=== PATIENT | female | born 1945 | race Hispanic/Latino ===

== ENCOUNTER 2017-12-24 11:03 | Emergency (ER) | payer MEDICARE ==
[~2017-12-24 11:03] MED LIST: ACYC400T PO; AMLO10TA2 PO; ASPI-1181 PO; CALC1TAB2 PO; ENAL20TA PO; FOLI1TAB15 PO; HYDR-4068 PO; INSLAN SQ; METH2.5T6 PO; METR500T4 PO; NYST15CR TP; OMEP20CA10 PO; PRED10TA23 PO; PREG75 PO; RANI300C PO; RANI300T4 PO; SERT50TA12 PO
[2017-12-24] MEDS ORDERED: GENTAMICIN SULFATE 0.3% 5ML DROPS ONE (12:52)
== END 2017-12-24 13:06 | disposition home or self-care (01) ==
LOC: EDH 11:03
DX: H10.33 Unspecified acute conjunctivitis, bilateral (principal); E11.9 Type 2 diabetes mellitus without complications; I10 Essential (primary) hypertension; M81.0 Age-related osteoporosis without current pathological fracture; Z79.4 Long term (current) use of insulin; Z87.891 Personal history of nicotine dependence

== ENCOUNTER 2018-11-07 17:39 | Inpatient (IN) | payer MEDICARE | END 2018-11-17 20:30 | LOC: EDH 17:39 → EDHIP 17:57 → 3AH 21:30 | PROC: 0J970ZZ Drainage of Back Subcutaneous Tissue and Fascia, Open Approach (ICD-10-PCS; principal; 2018-11-09 05:58) | PROC: 0HD6XZZ Extraction of Back Skin, External Approach (ICD-10-PCS; 2018-11-09 05:58) | PROC: 0JD90ZZ Extraction of Buttock Subcutaneous Tissue and Fascia, Open Approach (ICD-10-PCS; 2018-11-09 05:58) | DX: A41.9 Sepsis, unspecified organism (principal); M46.28 Osteomyelitis of vertebra, sacral and sacrococcygeal region; L02.31 Cutaneous abscess of buttock; Z79.52 Long term (current) use of systemic steroids; Z79.4 Long term (current) use of insulin; E11.65 Type 2 diabetes mellitus with hyperglycemia; E11.40 Type 2 diabetes mellitus with diabetic neuropathy, unspecified; E11.22 Type 2 diabetes mellitus with diabetic chronic kidney disease; N18.1 Chronic kidney disease, stage 1; I12.9 Hypertensive chronic kidney disease with stage 1 through stage 4 chronic kidney disease, or unspecified chronic kidney disease; I70.0 Atherosclerosis of aorta; D89.9 Disorder involving the immune mechanism, unspecified; M43.16 Spondylolisthesis, lumbar region ==

== ENCOUNTER → 2018-12-06 | Outpatient (CLI) | payer MEDICARE ==
[~2018-12-06] MED LIST changes: +ALBU8.5H8 IH; -AMLO10TA2 PO; +BUDE10.2 IH; -CALC1TAB2 PO; +DONE5TAB33 PO; -ENAL20TA PO; +LIDOCAINE HCL 2% JELLY 5 ML TP ONE; -METH2.5T6 PO; +METR-172 PO; -METR500T4 PO; -NYST15CR TP; -OMEP20CA10 PO; +PANT40TA PO; -PRED10TA23 PO; +PRED5TAB PO; -PREG75 PO; -RANI300C PO; -RANI300T4 PO; -SERT50TA12 PO; +SIMV5TAB58 PO
[2018-12-06 15:02] VITALS: BP 129/74
== END | disposition home or self-care (01) ==
LOC: WHH 09:00
PROVIDERS: ATTEND Surgery
DX: T81.89XD Other complications of procedures, not elsewhere classified, subsequent encounter (principal); E11.622 Type 2 diabetes mellitus with other skin ulcer; L98.412 Non-pressure chronic ulcer of buttock with fat layer exposed; K21.9 Gastro-esophageal reflux disease without esophagitis; F03.90 Unspecified dementia, unspecified severity, without behavioral disturbance, psychotic disturbance, mood disturbance, and anxiety; M81.0 Age-related osteoporosis without current pathological fracture; J44.9 Chronic obstructive pulmonary disease, unspecified; E11.22 Type 2 diabetes mellitus with diabetic chronic kidney disease; I12.9 Hypertensive chronic kidney disease with stage 1 through stage 4 chronic kidney disease, or unspecified chronic kidney disease; N18.1 Chronic kidney disease, stage 1; F32.9 Major depressive disorder, single episode, unspecified; E78.2 Mixed hyperlipidemia; M06.9 Rheumatoid arthritis, unspecified; E11.40 Type 2 diabetes mellitus with diabetic neuropathy, unspecified; E11.618 Type 2 diabetes mellitus with other diabetic arthropathy; M19.90 Unspecified osteoarthritis, unspecified site; F11.20 Opioid dependence, uncomplicated; Z90.49 Acquired absence of other specified parts of digestive tract; Z87.891 Personal history of nicotine dependence; Z96.642 Presence of left artificial hip joint; Z79.52 Long term (current) use of systemic steroids; Z79.51 Long term (current) use of inhaled steroids; Z79.4 Long term (current) use of insulin; Z79.82 Long term (current) use of aspirin; Z79.899 Other long term (current) drug therapy; Y83.8 Other surgical procedures as the cause of abnormal reaction of the patient, or of later complication, without mention of misadventure at the time of the procedure
CPT/HCPCS: A4450; A6021; G0463

== ENCOUNTER → 2018-12-13 | Outpatient (CLI) | payer MEDICARE ==
[~2018-12-13] MED LIST changes: -LIDOCAINE HCL 2% JELLY 5 ML TP ONE; +LIDOCAINE/PRILOCAINE CREAM 5GM TUBE TP ONE
[2018-12-13 15:15] VITALS: BP 137/57
== END | disposition home or self-care (01) ==
LOC: WHH 10:25
PROVIDERS: ATTEND Surgery
DX: T81.89XD Other complications of procedures, not elsewhere classified, subsequent encounter (principal); E11.622 Type 2 diabetes mellitus with other skin ulcer; L98.412 Non-pressure chronic ulcer of buttock with fat layer exposed; K21.9 Gastro-esophageal reflux disease without esophagitis; F03.90 Unspecified dementia, unspecified severity, without behavioral disturbance, psychotic disturbance, mood disturbance, and anxiety; E11.40 Type 2 diabetes mellitus with diabetic neuropathy, unspecified; E11.618 Type 2 diabetes mellitus with other diabetic arthropathy; E11.22 Type 2 diabetes mellitus with diabetic chronic kidney disease; I12.9 Hypertensive chronic kidney disease with stage 1 through stage 4 chronic kidney disease, or unspecified chronic kidney disease; N18.1 Chronic kidney disease, stage 1; J44.9 Chronic obstructive pulmonary disease, unspecified; M81.0 Age-related osteoporosis without current pathological fracture; M06.9 Rheumatoid arthritis, unspecified; E78.2 Mixed hyperlipidemia; F32.9 Major depressive disorder, single episode, unspecified; F11.20 Opioid dependence, uncomplicated; Z79.4 Long term (current) use of insulin; Z79.82 Long term (current) use of aspirin; Z79.52 Long term (current) use of systemic steroids; Z87.891 Personal history of nicotine dependence; Z79.899 Other long term (current) drug therapy; Z96.642 Presence of left artificial hip joint; Y83.8 Other surgical procedures as the cause of abnormal reaction of the patient, or of later complication, without mention of misadventure at the time of the procedure
CPT/HCPCS: A6021; G0463; J3490

== ENCOUNTER → 2018-12-20 | Outpatient (CLI) | payer MEDICARE ==
[2018-12-20 12:17] VITALS: BP 150/89
== END | disposition home or self-care (01) ==
LOC: WHH 10:10
PROVIDERS: ATTEND Surgery
DX: T81.89XD Other complications of procedures, not elsewhere classified, subsequent encounter (principal); E11.622 Type 2 diabetes mellitus with other skin ulcer; L98.412 Non-pressure chronic ulcer of buttock with fat layer exposed; E11.40 Type 2 diabetes mellitus with diabetic neuropathy, unspecified; E11.618 Type 2 diabetes mellitus with other diabetic arthropathy; E11.22 Type 2 diabetes mellitus with diabetic chronic kidney disease; I12.9 Hypertensive chronic kidney disease with stage 1 through stage 4 chronic kidney disease, or unspecified chronic kidney disease; N18.1 Chronic kidney disease, stage 1; K21.9 Gastro-esophageal reflux disease without esophagitis; J44.9 Chronic obstructive pulmonary disease, unspecified; E78.5 Hyperlipidemia, unspecified; E78.2 Mixed hyperlipidemia; M19.90 Unspecified osteoarthritis, unspecified site; M06.9 Rheumatoid arthritis, unspecified; M81.0 Age-related osteoporosis without current pathological fracture; F03.90 Unspecified dementia, unspecified severity, without behavioral disturbance, psychotic disturbance, mood disturbance, and anxiety; F32.9 Major depressive disorder, single episode, unspecified; Z79.4 Long term (current) use of insulin; Z79.82 Long term (current) use of aspirin; Z79.899 Other long term (current) drug therapy; Z87.891 Personal history of nicotine dependence; Z96.642 Presence of left artificial hip joint; Z79.51 Long term (current) use of inhaled steroids; Y83.8 Other surgical procedures as the cause of abnormal reaction of the patient, or of later complication, without mention of misadventure at the time of the procedure
CPT/HCPCS: 11042; A6021; J3490

== ENCOUNTER → 2018-12-27 | Outpatient (CLI) | payer MEDICARE ==
[2018-12-27 12:11] VITALS: BP 134/84
== END | disposition home or self-care (01) ==
LOC: WHH 09:45
PROVIDERS: ATTEND Surgery
DX: T81.89XD Other complications of procedures, not elsewhere classified, subsequent encounter (principal); E11.622 Type 2 diabetes mellitus with other skin ulcer; L98.412 Non-pressure chronic ulcer of buttock with fat layer exposed; E11.22 Type 2 diabetes mellitus with diabetic chronic kidney disease; I12.9 Hypertensive chronic kidney disease with stage 1 through stage 4 chronic kidney disease, or unspecified chronic kidney disease; N18.1 Chronic kidney disease, stage 1; E11.40 Type 2 diabetes mellitus with diabetic neuropathy, unspecified; E11.618 Type 2 diabetes mellitus with other diabetic arthropathy; E78.5 Hyperlipidemia, unspecified; E78.2 Mixed hyperlipidemia; K21.9 Gastro-esophageal reflux disease without esophagitis; M81.0 Age-related osteoporosis without current pathological fracture; M06.9 Rheumatoid arthritis, unspecified; M19.90 Unspecified osteoarthritis, unspecified site; F03.90 Unspecified dementia, unspecified severity, without behavioral disturbance, psychotic disturbance, mood disturbance, and anxiety; F32.9 Major depressive disorder, single episode, unspecified; Z79.4 Long term (current) use of insulin; Z79.82 Long term (current) use of aspirin; Z79.51 Long term (current) use of inhaled steroids; Z87.891 Personal history of nicotine dependence; Z96.642 Presence of left artificial hip joint; Z79.52 Long term (current) use of systemic steroids; Z79.899 Other long term (current) drug therapy; Y83.8 Other surgical procedures as the cause of abnormal reaction of the patient, or of later complication, without mention of misadventure at the time of the procedure
CPT/HCPCS: 11042; A6021; J3490

== ENCOUNTER → 2019-01-03 | Outpatient (CLI) | payer MEDICARE ==
[2019-01-03 14:10] VITALS: BP 145/115
== END | disposition home or self-care (01) ==
LOC: WHH 10:15
PROVIDERS: ATTEND Surgery
DX: T81.89XD Other complications of procedures, not elsewhere classified, subsequent encounter (principal); E11.40 Type 2 diabetes mellitus with diabetic neuropathy, unspecified; E11.618 Type 2 diabetes mellitus with other diabetic arthropathy; E11.22 Type 2 diabetes mellitus with diabetic chronic kidney disease; I12.9 Hypertensive chronic kidney disease with stage 1 through stage 4 chronic kidney disease, or unspecified chronic kidney disease; N18.1 Chronic kidney disease, stage 1; K21.9 Gastro-esophageal reflux disease without esophagitis; M06.9 Rheumatoid arthritis, unspecified; M81.0 Age-related osteoporosis without current pathological fracture; J44.9 Chronic obstructive pulmonary disease, unspecified; E78.2 Mixed hyperlipidemia; F11.20 Opioid dependence, uncomplicated; F03.90 Unspecified dementia, unspecified severity, without behavioral disturbance, psychotic disturbance, mood disturbance, and anxiety; F32.9 Major depressive disorder, single episode, unspecified; Z79.4 Long term (current) use of insulin; Z79.52 Long term (current) use of systemic steroids; Z79.51 Long term (current) use of inhaled steroids; Z79.82 Long term (current) use of aspirin; Z79.899 Other long term (current) drug therapy; Y83.8 Other surgical procedures as the cause of abnormal reaction of the patient, or of later complication, without mention of misadventure at the time of the procedure
CPT/HCPCS: 11042; A6021; J3490

== ENCOUNTER → 2019-01-17 | Outpatient (CLI) | payer MEDICARE ==
[2019-01-17 13:28] VITALS: BP 134/56
== END | disposition home or self-care (01) ==
LOC: WHH 11:45
PROVIDERS: ATTEND Surgery
DX: T81.89XD Other complications of procedures, not elsewhere classified, subsequent encounter (principal); E11.622 Type 2 diabetes mellitus with other skin ulcer; L98.412 Non-pressure chronic ulcer of buttock with fat layer exposed; E78.5 Hyperlipidemia, unspecified; K21.9 Gastro-esophageal reflux disease without esophagitis; F03.90 Unspecified dementia, unspecified severity, without behavioral disturbance, psychotic disturbance, mood disturbance, and anxiety; B37.9 Candidiasis, unspecified; E11.22 Type 2 diabetes mellitus with diabetic chronic kidney disease; I12.9 Hypertensive chronic kidney disease with stage 1 through stage 4 chronic kidney disease, or unspecified chronic kidney disease; N18.1 Chronic kidney disease, stage 1; E11.618 Type 2 diabetes mellitus with other diabetic arthropathy; J44.9 Chronic obstructive pulmonary disease, unspecified; E78.2 Mixed hyperlipidemia; M19.90 Unspecified osteoarthritis, unspecified site; M06.9 Rheumatoid arthritis, unspecified; F11.20 Opioid dependence, uncomplicated; Z79.4 Long term (current) use of insulin; Z79.82 Long term (current) use of aspirin; Z79.52 Long term (current) use of systemic steroids; Z79.899 Other long term (current) drug therapy; Z96.642 Presence of left artificial hip joint; Y83.8 Other surgical procedures as the cause of abnormal reaction of the patient, or of later complication, without mention of misadventure at the time of the procedure
CPT/HCPCS: A6021; G0463; J3490

== ENCOUNTER → 2019-01-31 | Outpatient (CLI) | payer MEDICARE ==
[2019-01-31 14:46] VITALS: BP 142/62
== END | disposition home or self-care (01) ==
LOC: WHH 10:00
PROVIDERS: ATTEND Surgery
DX: E11.622 Type 2 diabetes mellitus with other skin ulcer (principal); L98.412 Non-pressure chronic ulcer of buttock with fat layer exposed; E11.22 Type 2 diabetes mellitus with diabetic chronic kidney disease; I12.9 Hypertensive chronic kidney disease with stage 1 through stage 4 chronic kidney disease, or unspecified chronic kidney disease; N18.1 Chronic kidney disease, stage 1; E11.610 Type 2 diabetes mellitus with diabetic neuropathic arthropathy; E11.40 Type 2 diabetes mellitus with diabetic neuropathy, unspecified; K21.9 Gastro-esophageal reflux disease without esophagitis; E78.2 Mixed hyperlipidemia; J44.9 Chronic obstructive pulmonary disease, unspecified; M06.9 Rheumatoid arthritis, unspecified; M19.90 Unspecified osteoarthritis, unspecified site; M81.0 Age-related osteoporosis without current pathological fracture; F32.9 Major depressive disorder, single episode, unspecified; F03.90 Unspecified dementia, unspecified severity, without behavioral disturbance, psychotic disturbance, mood disturbance, and anxiety; F11.20 Opioid dependence, uncomplicated; Z79.4 Long term (current) use of insulin; Z79.82 Long term (current) use of aspirin; Z79.52 Long term (current) use of systemic steroids; Z87.891 Personal history of nicotine dependence; Z90.49 Acquired absence of other specified parts of digestive tract; Z96.642 Presence of left artificial hip joint; Z79.899 Other long term (current) drug therapy; Z79.51 Long term (current) use of inhaled steroids
CPT/HCPCS: A6209; G0463; J3490

== ENCOUNTER → 2019-02-07 | Outpatient (CLI) | payer MEDICARE ==
[~2019-02-07] MED LIST changes: -LIDOCAINE/PRILOCAINE CREAM 5GM TUBE TP ONE
[2019-02-07 12:24] VITALS: BP 135/68
== END | disposition home or self-care (01) ==
LOC: WHH 10:00
PROVIDERS: ATTEND Surgery
DX: T81.89XD Other complications of procedures, not elsewhere classified, subsequent encounter (principal); E11.622 Type 2 diabetes mellitus with other skin ulcer; L98.412 Non-pressure chronic ulcer of buttock with fat layer exposed; E11.22 Type 2 diabetes mellitus with diabetic chronic kidney disease; I12.9 Hypertensive chronic kidney disease with stage 1 through stage 4 chronic kidney disease, or unspecified chronic kidney disease; N18.1 Chronic kidney disease, stage 1; E11.610 Type 2 diabetes mellitus with diabetic neuropathic arthropathy; E11.40 Type 2 diabetes mellitus with diabetic neuropathy, unspecified; E11.618 Type 2 diabetes mellitus with other diabetic arthropathy; J44.9 Chronic obstructive pulmonary disease, unspecified; K21.9 Gastro-esophageal reflux disease without esophagitis; E78.5 Hyperlipidemia, unspecified; E78.2 Mixed hyperlipidemia; M81.0 Age-related osteoporosis without current pathological fracture; M19.90 Unspecified osteoarthritis, unspecified site; M06.9 Rheumatoid arthritis, unspecified; F11.20 Opioid dependence, uncomplicated; F32.9 Major depressive disorder, single episode, unspecified; F03.90 Unspecified dementia, unspecified severity, without behavioral disturbance, psychotic disturbance, mood disturbance, and anxiety; Z79.82 Long term (current) use of aspirin; Z79.51 Long term (current) use of inhaled steroids; Z79.52 Long term (current) use of systemic steroids; Z79.4 Long term (current) use of insulin; Z79.899 Other long term (current) drug therapy; Z90.49 Acquired absence of other specified parts of digestive tract; Y83.8 Other surgical procedures as the cause of abnormal reaction of the patient, or of later complication, without mention of misadventure at the time of the procedure
CPT/HCPCS: A6021; G0463

== ENCOUNTER → 2019-02-28 | Outpatient (CLI) | payer MEDICARE ==
[2019-02-28 13:04] VITALS: BP 136/64
== END | disposition home or self-care (01) ==
LOC: WHH 09:00
PROVIDERS: ATTEND Surgery
DX: T81.89XD Other complications of procedures, not elsewhere classified, subsequent encounter (principal); E11.22 Type 2 diabetes mellitus with diabetic chronic kidney disease; I12.9 Hypertensive chronic kidney disease with stage 1 through stage 4 chronic kidney disease, or unspecified chronic kidney disease; N18.1 Chronic kidney disease, stage 1; E11.40 Type 2 diabetes mellitus with diabetic neuropathy, unspecified; E11.610 Type 2 diabetes mellitus with diabetic neuropathic arthropathy; K21.9 Gastro-esophageal reflux disease without esophagitis; J44.9 Chronic obstructive pulmonary disease, unspecified; E78.5 Hyperlipidemia, unspecified; E78.2 Mixed hyperlipidemia; F03.90 Unspecified dementia, unspecified severity, without behavioral disturbance, psychotic disturbance, mood disturbance, and anxiety; M06.9 Rheumatoid arthritis, unspecified; M19.90 Unspecified osteoarthritis, unspecified site; M81.0 Age-related osteoporosis without current pathological fracture; F11.20 Opioid dependence, uncomplicated; F32.9 Major depressive disorder, single episode, unspecified; Z90.49 Acquired absence of other specified parts of digestive tract; Z79.82 Long term (current) use of aspirin; Z79.51 Long term (current) use of inhaled steroids; Z79.52 Long term (current) use of systemic steroids; Z87.891 Personal history of nicotine dependence; Z96.642 Presence of left artificial hip joint; Z79.899 Other long term (current) drug therapy; Y83.8 Other surgical procedures as the cause of abnormal reaction of the patient, or of later complication, without mention of misadventure at the time of the procedure
CPT/HCPCS: G0463

== ENCOUNTER 2020-09-26 12:07 | Inpatient (IN) | payer MEDICARE ==
[2020-09-26] VITALS (7 sets, daily range): BP systolic 96–126; BP diastolic 46–73
[~2020-09-26] VITALS: Ht 165.1 cm; Wt 63.1 kg
[~2020-09-26 12:07] MED LIST changes: -ACYC400T PO; +APIX5TAB PO; +ASCO500T20 PO; -ASPI-1181 PO; +ASPI-1443 PO; +DULO30CA2 PO; +FLUO10CA21 PO; +MEMA5TAB PO; +METO50 PO; +NIFE-40 PO; +ZINC220C6 PO
[2020-09-26 12:44] LABS: BASOPHILS % (AUTO) 0.6 % (0.0-5.0); EOSINOPHILS % (AUTO) 1.2 % (0.0-8.0); LYMPHOCYTES % (AUTO) 13.5 % (21.0-51.0); MEAN CORPUSCULAR HEMOGLOBIN 29.4 pg (27.0-33.0); MEAN CORPUSCULAR VOLUME 92.1 fL (79-99); MONOCYTES % (AUTO) 6.7 % (3.0-13.0); NEUTROPHILS % (AUTO) 76.2 % (40.0-77.0); PLATELET COUNT (AUTO) 473 K/uL (130-400); RED BLOOD CELL COUNT(AUTO) 4.45 MIL/uL (4.00-5.50); RED CELL DISTRIBUTION WIDTH 13.3 % (11.0-15.5); WHITE BLOOD COUNT (AUTO) 12.6 K/uL (4.8-10.8)
[2020-09-26 13:13] LABS: INR 1.34 (0.85-1.15); PARTIAL THROMBOPLASTIN TIME 34.3 SEC (26.3-35.5); PROTHROMBIN TIME 14.3 SEC (9.6-11.6)
[2020-09-26 13:23] LABS: ALANINE AMINOTRANSFERASE 6 U/L (12-78); ALBUMIN 2.2 g/dL (3.5-5.0); ASPARTATE AMINOTRANSFERASE 11 U/L (10-37); BILIRUBIN,TOTAL 1.1 mg/dL (0.2-1.0); CARBON DIOXIDE 21 mmol/L (21-32); CHLORIDE 100 mmol/L (101-111); CREATINE KINASE, TOTAL 22 U/L (21-232); GLOMERULAR FILTR. RATE CALC 58 mL/min (>60); GLUCOSE,RANDOM 222 mg/dL (70-105); MYOGLOBIN 26 ng/mL (10-92); POTASSIUM 4.1 mmol/L (3.5-5.1); SODIUM SERUM 135 mmol/L (136-145); TOTAL PROTEIN, SERUM 6.5 g/dL (6.0-8.3); TROPONIN I < 0.04 ng/mL (0.00-0.06); UREA NITROGEN, BLOOD 38 mg/dL (7-18)
[2020-09-26] MEDS ORDERED: DILTIAZEM HCL 125 MG/25 ML VIAL IV ONE (13:35)
[2020-09-26] MEDS ORDERED: SODIUM CHLORIDE 0.9% 100 ML IV ONE (13:36)
[2020-09-26 15:19] LABS: APPEARANCE,URINE TURBID (CLEAR); BILIRUBIN,URINE LARGE (NEGATIVE); COLOR,URINE BROWN (YELLOW); GLUCOSE, URINE (UA) 100 mg/dL (NEGATIVE); KETONES,URINE 15 mg/dL (NEGATIVE); LEUKOCYTE ESTERASE ,URINE LARGE (NEGATIVE); NITRATE,URINE POSITIVE (NEGATIVE); OCCULT BLOOD,URINE LARGE (NEGATIVE); PH,URINE 6.5 (5.0-8.0); PROTEIN,URINE >=300 mg/dL (NEGATIVE)
[2020-09-26 15:48] LABS: BACTERIA,URINE Few /HPF (None Seen); SQUAMOUS EPITHELIAL CELL,UR None Seen /HPF (0-2); WBC,URINE >100 /HPF (0-1)
[2020-09-26] MEDS ORDERED: MAGNESIUM 2GM PREMIX 50ML 50 ML IV ONE (16:13)
[2020-09-26] MEDS ORDERED: ZOSYN 3.375GM+NS 50ML 50 ML IV ONE (16:13)
[2020-09-26] MEDS ORDERED: ZOSYN 3.375GM+NS 50ML 50 ML IV SCH (17:15)
[2020-09-26] MEDS ORDERED: METHYLPREDNISOLONE SOD SUCC 125MG/2ML VIAL IVP SCH (17:15)
[2020-09-26] MEDS ORDERED: DILTIAZEM 125MG+100 ML NS 125 ML IV NR (17:30)
--- NOTE | 2020-09-26 20:00 | NUR ---
Admission Assessment Received pt from Ed per amloer, no family around, Cardizem drip at 15mg/hr infusing well, pt noted to be sleepy but easily awaken, responds appropriately on an open ended questions. Routine admission assessment done, plan of care discuss. Pt noted soiled with feces on transfer, with very foul odor stool, noted loose to watery. Jolanta care was rendered, noted rectal area with skin irritations. Attempt to verify with pt is she has problem with diarrhea, claimed no but questioned her that her rectal area is with skin irritation most probably due to diarrhea, then pt stated remembers now that she has had multiple BM at home & in ED today. Pt noted to be forgetful admission data base completed with her previous admission records. Pt currently denies discomfort, mouth so dry & flaky, mouth care rendered. NS at 60cc/hr to be initiated as ordered. Home medication entered as verified with the pt as read from the medication bottles brought in by the pt.
[2020-09-26] MEDS: ZOSYN 3.375GM+NS 50ML 50 ML IV SCH (20:25)
[2020-09-26] MEDS: SODIUM CHLORIDE 0.9% 1000ML 1,000 ML IV SCH (20:44)
--- NOTE | 2020-09-26 21:07 | NUR ---
Dr Wiggins paged for orders.
--- NOTE | 2020-09-26 21:20 | NUR ---
Re: Dr. Wiggins called back Dr. Wiggins was page & called back at this time, to clarify re: Inge manrique, updated with current VS, stated OK to follow Inge protocol, I also made her aware that pt noted (+) diarrhea but pt denies it at this time, noted rectal area with some skin irritation will be applied skin barrier, with orders & carried out.
--- NOTE | 2020-09-26 23:50 | NUR ---
Re: Stool collected earlier Received a call from laboratory c/o Zulema, stated that we need to recollect another stool for C-diff as previous specimen collected has C diff organism but toxin was not detected. ALEX Silverio made aware to removed for now the barrier cream applied earlier until we are able to re-collect the specimen. Pt is place on contact isolation at this time.
[2020-09-27] VITALS (12 sets, daily range): BP systolic 88–115; BP diastolic 49–64
--- NOTE | 2020-09-27 01:59 | NUR ---
Re: Cardizem drip Cardizem drip rate decrease to 10mg/hr, BP 103/59, P 78, per heart telemetry monitor Dilia 86 Afib
--- NOTE | 2020-09-27 03:20 | NUR ---
Re-Assessment Pt noted to be fully awake atthis time, pleasantly conversant, clarified being sick since Monday (+) diarrhea, becoming very weak reason on coming back to the hospital, denied SOB, cough & fever prior admission but stated she was COVID (+) before she was d/c home last Monday09/23/2020. Re-discuss plan of care & pt made aware that she could have been monitored well in a SNF prior to going home as noted she did declined placement. Per pt stated her pass away in a detention, claimed [facility] & does not want to go there. I inform pt that there are other nursing homes that she can go for temporarily for rehabilitation & close monitoring. Per pt stated she will think about it. Pt reminded that we will need to re-collect stool for testing. Pt also stated that she is not able to ambulate well to Rheumatoid Arthritis uses wheelchair at home more to moved around. Pt also made aware that she has to let us know if she has a BM as she need to be clean VALENTIN due to (+) rash with skin irritation to her anal area, agreed.
--- NOTE | 2020-09-27 05:00 | NUR ---
Re: Cardizem drip Cardizem drip rate decrease to 8mg/hr, BP 99/63, P 96, per heart teletypesetter monitor Dilia 85 Afib.
[2020-09-27 05:48] LABS: HEMATOCRIT 32.6 % (36-48); MEAN CORPUSCULAR HEMOGLOBIN 29.7 pg (27.0-33.0); MEAN CORPUSCULAR HGB CONC 31.9 g/dL (32.0-36.0); MEAN CORPUSCULAR VOLUME 93.1 fL (79-99); RED BLOOD CELL COUNT(AUTO) 3.5 MIL/uL (4.00-5.50); RED CELL DISTRIBUTION WIDTH 13.5 % (11.0-15.5); WHITE BLOOD COUNT (AUTO) 20.1 K/uL (4.8-10.8)
[2020-09-27] MEDS: METHYLPREDNISOLONE SOD SUCC 125MG/2ML VIAL IVP SCH ×3 (05:56→21:19)
[2020-09-27 05:58] LABS: CREATININE 0.8 mg/dL (0.5-1.5)
[2020-09-27] MEDS ORDERED: DEXTROSE 50%-WATER 50 ML DISP.SYRIN IV PRN ×2 (06:30→06:45)
[2020-09-27] MEDS ORDERED: GLUCAGON 1MG KIT 1 MG ML IM PRN ×2 (06:30→06:45)
[2020-09-27] MEDS ORDERED: ALBUTEROL INHALER 90MCG/INH IH PRN (06:30)
[2020-09-27] MEDS ORDERED: ACETAMINOPHEN 325 MG TAB PO PRN ×2 (06:45)
[2020-09-27] MEDS ORDERED: LIDOCAINE HCL-MPF 1% 2ML VIAL IJ PRN (06:45)
[2020-09-27] MEDS ORDERED: ONDANSETRON HCL 4 MG/2 ML VIAL IV PRN (06:45)
[2020-09-27] MEDS: INSULIN HUMULIN R 100 UNIT/ML 3ML SQ SCH ×4 (07:30→21:21)
[2020-09-27] MEDS ORDERED: INSULIN HUMULIN R 100 UNIT/ML 3ML ONE (07:48)
[2020-09-27] MEDS ORDERED: SUB PER P&T FOR ASTHMA OR COPD RECOMMENDATION IH SCH (09:00)
[2020-09-27] MEDS ORDERED: INSULIN GLARGINE 100 UNITS/ML 10 ML VIAL SQ SCH (09:00)
[2020-09-27] MEDS: SODIUM CHLORIDE 0.9% 1000ML 1,000 ML IV SCH (09:55)
[2020-09-27] MEDS: ZOSYN 3.375GM+NS 50ML 50 ML IV SCH ×2 (11:02→21:18)
[2020-09-27] MEDS: FLUOXETINE HCL 20 MG CAPSULE PO SCH (11:03)
[2020-09-27] MEDS: FOLIC ACID 1 MG TABLET PO SCH ×2 (11:03→21:19)
[2020-09-27] MEDS: PANTOPRAZOLE SODIUM 40 MG TABLET.DR PO SCH (11:03)
[2020-09-27] MEDS: METRONIDAZOLE 500 MG TABLET PO SCH ×2 (11:03→21:19)
[2020-09-27] MEDS: ZINC SULFATE 220 CAPSULE PO SCH (11:03)
[2020-09-27] MEDS: METOPROLOL TARTRATE 50 MG TAB PO SCH ×2 (11:03→21:19)
[2020-09-27] MEDS: APIXABAN 5 MG TABLET PO SCH ×2 (11:04→21:19)
[2020-09-27] MEDS: MAGNESIUM OXIDE 400 MG TABLET PO SCH (11:04)
[2020-09-27] MEDS: ASCORBIC ACID 500 MG TAB PO SCH (11:05)
--- NOTE | 2020-09-27 12:59 | NUR ---
INITIAL: PT w confusion; call placed to Ivanna (pt's dtr). Per dtr prior to admission pt was living w her brother (Oliverio). Pt has was previously using a wc or rollator and was independent w ADLs. Pt was receiving provider services 4 1/2hr per day and PT/Nsg services from [facility]. Per Ivanna pt will require SNF @ [place] but will come by to hospital later and touch base w CM. CM to continue to follow. Addendum: 09/27/20 at 1645 by HENRIQUE PATEL CM Amended: Links added.
[2020-09-27] MEDS: FLUTICASONE/VILANTEROL 1 EACH BLST.W.DEV IH SCH (13:20)
--- NOTE | 2020-09-27 14:00 | NUR ---
CARDIZEM DRIP WEANED OFF, TELEMETRY AFIB 60-70. PT DENIES CHEST PAIN OR DISCOMFORT, TELEMETRY MONITORING.
--- NOTE | 2020-09-27 16:45 | NUR ---
[facility] Met w pt's dtr Ivanna. Discussed Md order/recommendation for SNF @ [place]. JANNETTE/PC obtained for [facility] 1st choice, [facility] 2nd. Per Ivanna ok to initiate referral, however she will discuss SNF further w Dr. Wiggins. Referral/PASSR faxed to [facility]. Nusrat informed regarding new referral. CM to f/u in am.
[2020-09-27] MEDS: SIMVASTATIN 10 MG TABLET PO SCH (21:19)
[2020-09-28] MEDS: SODIUM CHLORIDE 0.9% 1000ML 1,000 ML IV SCH ×2 (02:47→17:06)
[2020-09-28 04:00] VITALS: BP 96/63
[2020-09-28] MEDS: METHYLPREDNISOLONE SOD SUCC 125MG/2ML VIAL IVP SCH ×2 (04:29→12:27)
[2020-09-28 06:24] LABS: HEMATOCRIT 29.1 % (36-48); MEAN CORPUSCULAR HEMOGLOBIN 29.1 pg (27.0-33.0); MEAN CORPUSCULAR HGB CONC 31.6 g/dL (32.0-36.0); MEAN CORPUSCULAR VOLUME 92.1 fL (79-99); RED BLOOD CELL COUNT(AUTO) 3.16 MIL/uL (4.00-5.50); RED CELL DISTRIBUTION WIDTH 13.3 % (11.0-15.5)
[2020-09-28 06:27] LABS: CREATININE 0.8 mg/dL (0.5-1.5); POTASSIUM 3.7 mmol/L (3.5-5.1)
[2020-09-28] MEDS: INSULIN HUMULIN R 100 UNIT/ML 3ML SQ SCH ×4 (07:30→21:24)
[2020-09-28 07:48] VITALS: BP 94/67
[2020-09-28] MEDS: ASCORBIC ACID 500 MG TAB PO SCH (09:00)
[2020-09-28] MEDS: METOPROLOL TARTRATE 50 MG TAB PO SCH (09:00)
[2020-09-28] MEDS: FLUTICASONE/VILANTEROL 1 EACH BLST.W.DEV IH SCH (09:00)
[2020-09-28] MEDS ORDERED: FLUO20TA29 PO (09:11)
[2020-09-28] MEDS ORDERED: ROSU5TAB PO (09:11)
--- NOTE | 2020-09-28 11:23 | NUR ---
[facility] PER [facility], PATIENT HAS BEEN APPROVED FOR FACILITY. POSSIBLE NEED FOR PEG TUBE, WILL NOT DISCHARGE TODAY. PRIMARY NURSE, VINOD LOYA, AWARE OF SNF APPROVAL. PATIENT WILL NEED COVID RETEST WHEN READY FOR DC TO FACILITY.
[2020-09-28 12:00] VITALS: BP 115/61
[2020-09-28] MEDS: ZOSYN 3.375GM+NS 50ML 50 ML IV SCH ×2 (12:27→21:18)
[2020-09-28] MEDS: ZINC SULFATE 220 CAPSULE PO SCH (12:29)
[2020-09-28] MEDS: FOLIC ACID 1 MG TABLET PO SCH ×2 (12:29→21:18)
[2020-09-28] MEDS: MAGNESIUM OXIDE 400 MG TABLET PO SCH (12:29)
[2020-09-28] MEDS: PANTOPRAZOLE SODIUM 40 MG TABLET.DR PO SCH (12:29)
[2020-09-28] MEDS: FLUOXETINE HCL 20 MG CAPSULE PO SCH (12:29)
[2020-09-28] MEDS: METRONIDAZOLE 500 MG TABLET PO SCH ×3 (12:29→21:18)
--- NOTE | 2020-09-28 14:30 | NUR ---
CONSULT CALLED IN TO GI, SPOKE TO KAMALA, STATES WILL NOTIFY DR TOTH
[2020-09-28 16:00] VITALS: BP 104/68
[2020-09-28 19:51] VITALS: BP 104/66
[2020-09-28] MEDS: PREDNISONE 20 MG TABLET PO SCH (21:17)
[2020-09-28] MEDS: SIMVASTATIN 10 MG TABLET PO SCH (21:18)
[2020-09-28] MEDS: INSULIN GLARGINE 100 UNITS/ML 10 ML VIAL SQ SCH (21:25)
[2020-09-28 23:32] VITALS: BP 104/66
[2020-09-29] MEDS: SODIUM CHLORIDE 0.9% 1000ML 1,000 ML IV SCH ×2 (02:12→13:04)
[2020-09-29 03:46] VITALS: BP 118/72
[2020-09-29] MEDS: INSULIN HUMULIN R 100 UNIT/ML 3ML SQ SCH ×4 (05:56→21:00)
[2020-09-29 06:02] LABS: HEMATOCRIT 27.3 % (36-48); MEAN CORPUSCULAR HEMOGLOBIN 29.8 pg (27.0-33.0); MEAN CORPUSCULAR HGB CONC 32.6 g/dL (32.0-36.0); MEAN CORPUSCULAR VOLUME 91.3 fL (79-99); RED BLOOD CELL COUNT(AUTO) 2.99 MIL/uL (4.00-5.50); RED CELL DISTRIBUTION WIDTH 13.7 % (11.0-15.5); WHITE BLOOD COUNT (AUTO) 13.4 K/uL (4.8-10.8)
[2020-09-29 06:19] LABS: CREATININE 0.6 mg/dL (0.5-1.5); POTASSIUM 3.3 mmol/L (3.5-5.1)
[2020-09-29 07:45] VITALS: BP 121/76
--- NOTE | 2020-09-29 08:45 | NUR ---
AM ASSESSMENT PT LAYING IN BED, HOB ELEVATED 30 DEGREES, RESTING. A/O X 2;FORGETFUL. FLAT AFFECT. SOB ON EXERTION. NO DISTRESS NOTED. O2 NC @ 2L. DENIES CHEST PAIN OR DISCOMFORT. DENIES PALPITATIONS. TELE: AFIB 100s. DENIES N/V AND/OR DIARRHEA. 0.9% NACL INFUSING @ 100 ML/HR. BEDREST. GBW. INSTRUCTED TO CALL FOR ASSISTANCE. CALL VIKRAM W/IN REACH.
[2020-09-29] MEDS: ZOSYN 3.375GM+NS 50ML 50 ML IV SCH ×2 (09:53→21:20)
[2020-09-29] MEDS: MAGNESIUM OXIDE 400 MG TABLET PO SCH (09:54)
[2020-09-29] MEDS: ASCORBIC ACID 500 MG TAB PO SCH (09:54)
[2020-09-29] MEDS: FOLIC ACID 1 MG TABLET PO SCH ×2 (09:54→21:23)
[2020-09-29] MEDS: ZINC SULFATE 220 CAPSULE PO SCH (09:54)
[2020-09-29] MEDS: PREDNISONE 20 MG TABLET PO SCH ×2 (09:54→21:21)
[2020-09-29] MEDS: FLUOXETINE HCL 20 MG CAPSULE PO SCH (09:54)
[2020-09-29] MEDS: METRONIDAZOLE 500 MG TABLET PO SCH ×3 (09:54→21:23)
[2020-09-29] MEDS: PANTOPRAZOLE SODIUM 40 MG TABLET.DR PO SCH (09:54)
[2020-09-29] MEDS: INSULIN GLARGINE 100 UNITS/ML 10 ML VIAL SQ SCH ×2 (09:56→21:27)
[2020-09-29] MEDS: FLUTICASONE/VILANTEROL 1 EACH BLST.W.DEV IH SCH (09:56)
[2020-09-29 11:18] VITALS: BP 135/83
--- NOTE | 2020-09-29 11:57 | NUR ---
MD VISIT DR TUCKER IN TO SEE PT. PT CURRENTLY HAVING MBSS @ RADIOLOGY. UPDATED ON PT'S STATUS & PLAN OF CARE REVIEWED.
--- NOTE | 2020-09-29 12:00 | NUR ---
MBSS COMPLETED. + TRANSIENT PENETRATION WITH THIN LIQUIDS VIA STRAW. RECOMMEND PUREED SOLIDS, THIN LIQUIDS (NO STRAW), PILLS CRUSHED TOLERATED. RECOMMENDATIONS: DYSPHAGIA THERAPY 3-5X WEEK TO INCREASE ORAL MOTOR STRENGTH AND PHARYNGEAL SWALLOW: LTG#1: Pt WILL TOLERATE LEAST RESTRICTIVE DIET TO MEET NUTRITION/HYDRATION WITH NO S/S OF ASPIRATION. LTG#2: SKILLED EDUCATION Pt/FAMILY/STAFF STG#1: Pt WILL PARTICIPATE IN LARYNGEAL ELEVATION/EXCURSION EXERCISES WITH 80% ACCURACY. STG#2: Pt WILL PARTICIPATE IN TONGUE BASE RETRACTION EXERCISES WITH 80% ACCURACY. STG#3: Pt WILL PARTICIPATE IN ORAL MOTOR EXERCISES WITH 80% ACCURACY. STG#4: Pt WILL PARTICIPATE IN ADVANCED TRIALS OF MECHANICAL SOFT/FINELY CHOPPED CONSISTENCY WITH NO S/S OF ASPIRATION, STG#5: Pt WILL TOLERATE MODIFIED DIET OF PUREED WITH NO S/S OF ASPIRATION. STG#6: PT WILL BE ABLE TO PARTICIPATE IN MBSS AFTER 2-4 WEEKS OF THERAPEUTIC INTERVENTION. STG#7: SKILLED EDUCATION Pt/FAMILY/STAFF. TRIMMER BUFFING WHEEL COORDINATED CARE WITH NURSE GARAY. ALL QUESTIONS ANSWERED AT THIS TIME. ALL QUESTIONS ANSWERED AT THIS TIME. Addendum: 09/29/[address]ANDA THOMPSON Amended: Links added.
[2020-09-29] MEDS: METOPROLOL TARTRATE 25 MG TAB PO SCH ×2 (14:55→21:22)
[2020-09-29] MEDS: POTASSIUM CHLORIDE 10% ELIXIR 20 MEQ/15 ML UDCUP PO PRN (14:56)
--- NOTE | 2020-09-29 16:07 | NUR ---
MD NOTIFICATION/CALL BACK DR TOTH'S CALL BACK RECEIVED REGARDING MBSS RESULTS. PEG TUBE PLACEMENT NOT RECOMMENDED. F/U 1 WEEK POST DC.
[2020-09-29 16:24] VITALS: BP 129/50
[2020-09-29 20:00] VITALS: BP 113/79
[2020-09-29] MEDS: POTASSIUM CHLORIDE 20 MEQ ERTAB PO SCH (21:21)
[2020-09-29] MEDS: SIMVASTATIN 10 MG TABLET PO SCH (21:23)
[2020-09-29 23:32] VITALS: BP 126/77
[2020-09-30] MEDS: SODIUM CHLORIDE 0.9% 1000ML 1,000 ML IV SCH ×2 (02:05→15:30)
[2020-09-30 03:48] VITALS: BP 123/69
[2020-09-30] MEDS: INSULIN HUMULIN R 100 UNIT/ML 3ML SQ SCH ×4 (05:45→20:57)
[2020-09-30 06:10] LABS: HEMATOCRIT 29.4 % (36-48); MEAN CORPUSCULAR HEMOGLOBIN 29.5 pg (27.0-33.0); MEAN CORPUSCULAR HGB CONC 31.6 g/dL (32.0-36.0); MEAN CORPUSCULAR VOLUME 93.3 fL (79-99); RED BLOOD CELL COUNT(AUTO) 3.15 MIL/uL (4.00-5.50); RED CELL DISTRIBUTION WIDTH 13.7 % (11.0-15.5); WHITE BLOOD COUNT (AUTO) 13.8 K/uL (4.8-10.8)
[2020-09-30 06:32] LABS: CREATININE 0.5 mg/dL (0.5-1.5); POTASSIUM 3.8 mmol/L (3.5-5.1)
[2020-09-30 07:30] VITALS: BP 125/80
[2020-09-30] MEDS: METRONIDAZOLE 500 MG TABLET PO SCH ×3 (09:00→21:00)
--- NOTE | 2020-09-30 09:15 | NUR ---
DYSPHAGIA TREATMENT COMPLETED. S: Pt COOPERATIVE DURING THE SESSION. Pt ALERT AND RESPONDING TO BASIC COMMANDS. SORTING AND FOLDING SUPERVISOR REPOSITIONED PATIENT IN BED TO 90 DEGREES FOR P.O. THERAPEUTIC TRIALS. PATIENT STATED SHE FELT NAUSEOUS THIS MORNING. NO NAUSEOUS OR VOMITING DURING SESSION OBSERVED. NURSE REPORTS PATIENT CONTINUES WITH LOW P.O. INTAKE. O: Pt CURRENTLY TARGETING SWALLOWS GOALS. RESULTS ARE FOLLOWS: LTG#1: Pt WILL TOLERATE LEAST RESTRICTIVE DIET TO MEET NUTRITION/HYDRATION WITH NO S/S OF ASPIRATION. LTG#2: SKILLED EDUCATION Pt/FAMILY/STAFF. STG#1: Pt WILL PARTICIPATE IN LARYNGEAL ELEVATION/EXCURSION EXERCISES WITH 80% ACCURACY: 50% ACCURACY; PATIENT FELT NAUSEOUS. STG#2: Pt WILL PARTICIPATE IN TONGUE BASE RETRACTION EXERCISES WITH 80% ACCURACY: 80% ACCURACY. STG#3: Pt WILL PARTICIPATE IN ORAL MOTOR EXERCISES WITH 80% ACCURACY: 80% ACCURACY. STG#4: Pt WILL PARTICIPATE IN ADVANCED TRIALS OF MECHANICAL SOFT/FINELY CHOPPED CONSISTENCIES WITH NO S/S OF ASPIRATION: MIXED FRUIT FINELY CHOPPED X5 WITH NO S/S OF ASPIRATION. STG#5: Pt WILL TOLERATE MODIFIED DIET OF PUREED WITH NO S/S OF ASPIRATION:NO S/S OF ASPIRATION WITH X3 TRIALS OF PUREED. STG#6: SKILLED EDUCATION Pt/FAMILY/STAFF: COMPLETED A: Pt COOPERATIVE WITH ALL TRIALS AND ACTIVITIES. P: RECOMMEND THE CONTINUATION OF PUREED SOLIDS WITH THIN LIQUIDS (NO STRAWS). SORTING AND FOLDING SUPERVISOR COORDINATED WITH NURSE SORIA. PATIENT'S CUP ON TABLE HAD STRAW; NURSE WAS NOTIFIED. PATIENT WAS EDUCATED ON RISKS AND CONSEQUENCES OF ASPIRATION WITH STRAWS AT THIS TIME. PATIENT VOICED UNDERSTANDING. Addendum: 09/30/[address]ANDA THOMPSON Amended: Links added.
[2020-09-30] MEDS: FOLIC ACID 1 MG TABLET PO SCH ×2 (10:26→20:59)
[2020-09-30] MEDS: ZOSYN 3.375GM+NS 50ML 50 ML IV SCH (10:26)
[2020-09-30] MEDS: FLUOXETINE HCL 20 MG CAPSULE PO SCH (10:26)
[2020-09-30] MEDS: POTASSIUM CHLORIDE 20 MEQ ERTAB PO SCH ×2 (10:27→21:00)
[2020-09-30] MEDS: PANTOPRAZOLE SODIUM 40 MG TABLET.DR PO SCH (10:27)
[2020-09-30] MEDS: PREDNISONE 20 MG TABLET PO SCH ×2 (10:27→18:25)
[2020-09-30] MEDS: ZINC SULFATE 220 CAPSULE PO SCH (10:27)
[2020-09-30] MEDS: MAGNESIUM OXIDE 400 MG TABLET PO SCH (10:27)
[2020-09-30] MEDS: ASCORBIC ACID 500 MG TAB PO SCH (10:27)
[2020-09-30] MEDS: METOPROLOL TARTRATE 25 MG TAB PO SCH ×2 (10:27→18:25)
[2020-09-30 11:00] VITALS: BP 118/79
[2020-09-30] MEDS: FLUTICASONE/VILANTEROL 1 EACH BLST.W.DEV IH SCH (13:12)
[2020-09-30] MEDS: INSULIN GLARGINE 100 UNITS/ML 10 ML VIAL SQ SCH ×2 (13:12→18:47)
--- NOTE | 2020-09-30 14:02 | NUR ---
NOTIFIED DR. TUCKER THAT THE PATIENT CAMEBACK POSITIVE FOR THE RAPID TEST FOR COVID. SHE VERBALIZED THAT SHE WILL CALL THE CASE MANAGEMENT TO SEE THE NEXT STEP TO SENDING HER TO [facility]
--- NOTE | 2020-09-30 14:28 | NUR ---
CM NOTE/COVID RESULT AND SNF PLACEMENT PATIENT TESTED POSITIVE FOR COVID RAPID ANTIGEN, RECEIVED CALL FROM DR. TUCKER. PLAN TO RESWAB PATIENT FOR COVID PCR SINCE LAST NEGATIVE COVID PCR WAS 09/26. PER DR. TUCKER, PATIENT DOES NOT HAVE SYMPTOMS AND FEELS COMFORTABLE TRANSFERRING PATIENT IF SNF ACCEPTS. [facility] MADE AWARE OF POSITIVE RAPID RESULT AND PLAN TO RESWAB PATIENT FOR COVID PCR WHICH SHOULD RESULT ON 10/02 OR 10/03 DUE TO . PRIMARY NURSE, YANG LOYA, MADE AWARE. PATIENT WILL NOT DC TODAY TO SNF, PENDING COVID PCR TEST AND RESULTS.
[2020-09-30 16:00] VITALS: BP 124/63
--- NOTE | 2020-09-30 17:25 | NUR ---
RD NOTIFICATION Pt admitted due to A-fib, RVR, UTI, and Dehydration RD consult placed for TF recommendations. RD called 3x to 4B, no answer as to bolus feeds or continuos. Pt with current diet order of 75 gm CC with puree consistency. With poor PO Pt has prior admission due to COVID. Admission with poor PO intake. Pt seen by ENVIRONMENTAL COMPLIANCE OFFICER, pt passed BMSS therefore no PEG was placed as per EMR. NG was placed in order to have TF due to poor PO intake. RD RECOMMENDATION: When feasible, initiate TF at 15 ml/hr for 8 hours increase as tolerated by 5 ml every 5 hr to goal rate of 45 ml/hr Recommended water flush of 105 ml Q4 Pt at risk for refeeding due to poor PO intake prior to admission. Monitor electrolytes, residuals and hydration status. Monitor TF tolerance. RD will continue to follow LABS: WBC 13.8, NA 142, CL 113, BUN 20, CREAT 0.5, BG 130, ALB 2.2 Addendum: 09/30/20 at [address] Amended: Links added.
[2020-09-30] MEDS ORDERED: FLUCONAZOLE 100 MG TAB PO SCH (17:34)
[2020-09-30] MEDS ORDERED: METOPROLOL TARTRATE 1 MG/ML 5ML VIAL IV SCH (18:30)
--- NOTE | 2020-09-30 18:36 | NUR ---
NOTIFIED DR. TUCKER THAT THE PATIENT IS AFIB RVR HEART RATE OF 130S. SHE ORDERED ONE TIME DOSE OF METOPROL 2.5 MG AND IF THE HEART RATE NOT RESOLVE IN 30 MINUTES TO GIVE DIGOXIN 0.5 IV ONE TIME DOSE.
[2020-09-30 20:00] VITALS: BP 127/82
--- NOTE | 2020-09-30 20:00 | NUR ---
ASSESSMENT NOTE PATIENT AWAKE, ALERT, OX3, NO SOB, NO C/O PAIN AT THIS TIME, TEACH PATIENT PLAN OF CARE AND EXPECTED OUTCOME , PATIENT VERBALIZES UNDERSTANDING VIA TEACH BACK, TELE SHOWING AFIB HEART RATE 92
[2020-09-30] MEDS: NITROFURANTOIN MONOHYD/M-CRYST 100 MG CAPSULE PO SCH (20:59)
[2020-09-30] MEDS: SIMVASTATIN 10 MG TABLET PO SCH (21:00)
[2020-09-30] MEDS: NYSTATIN 15 GM POWDER TP SCH (21:18)
[2020-10-01] VITALS: BP 140/67
[2020-10-01 04:00] VITALS: BP 144/91
[2020-10-01] MEDS: SODIUM CHLORIDE 0.9% 1000ML 1,000 ML IV SCH ×2 (04:23→16:49)
[2020-10-01 04:46] LABS: HEMATOCRIT 30.2 % (36-48); MEAN CORPUSCULAR HGB CONC 31.8 g/dL (32.0-36.0); MEAN CORPUSCULAR VOLUME 91.2 fL (79-99); RED BLOOD CELL COUNT(AUTO) 3.31 MIL/uL (4.00-5.50); RED CELL DISTRIBUTION WIDTH 13.7 % (11.0-15.5); WHITE BLOOD COUNT (AUTO) 9.9 K/uL (4.8-10.8)
[2020-10-01] MEDS: INSULIN HUMULIN R 100 UNIT/ML 3ML SQ SCH ×4 (06:04→20:55)
[2020-10-01 08:00] VITALS: BP 119/66
[2020-10-01] MEDS: PREDNISONE 20 MG TABLET PO SCH (11:40)
[2020-10-01] MEDS: ASCORBIC ACID 500 MG TAB PO SCH (11:41)
[2020-10-01] MEDS: APIXABAN 5 MG TABLET PO SCH ×2 (11:41→20:50)
[2020-10-01] MEDS: METRONIDAZOLE 500 MG TABLET PO SCH ×3 (11:41→20:50)
[2020-10-01] MEDS: FOLIC ACID 1 MG TABLET PO SCH ×2 (11:41→20:51)
[2020-10-01] MEDS: ZINC SULFATE 220 CAPSULE PO SCH (11:41)
[2020-10-01] MEDS: FLUOXETINE HCL 20 MG CAPSULE PO SCH (11:41)
[2020-10-01] MEDS: PANTOPRAZOLE SODIUM 40 MG TABLET.DR PO SCH (11:41)
[2020-10-01] MEDS: MAGNESIUM OXIDE 400 MG TABLET PO SCH (11:41)
[2020-10-01] MEDS: NITROFURANTOIN MONOHYD/M-CRYST 100 MG CAPSULE PO SCH ×2 (11:42→20:51)
[2020-10-01] MEDS: METOPROLOL TARTRATE 25 MG TAB PO SCH ×3 (11:42→20:49)
[2020-10-01] MEDS: POTASSIUM CHLORIDE 20 MEQ ERTAB PO SCH ×2 (11:51→20:51)
[2020-10-01] MEDS: NYSTATIN 15 GM POWDER TP SCH ×3 (11:53→20:55)
[2020-10-01] MEDS: INSULIN GLARGINE 100 UNITS/ML 10 ML VIAL SQ SCH (11:53)
[2020-10-01 12:00] VITALS: BP 123/83
[2020-10-01] MEDS: FLUTICASONE/VILANTEROL 1 EACH BLST.W.DEV IH SCH (12:00)
[2020-10-01] MEDS: LOPERAMIDE HCL 2 MG CAP PO PRN (16:49)
[2020-10-01 18:00] VITALS: BP 111/67
[2020-10-01 20:00] VITALS: BP 119/78
[2020-10-01] MEDS: SIMVASTATIN 10 MG TABLET PO SCH (20:50)
[2020-10-02] VITALS (7 sets, daily range): BP systolic 105–150; BP diastolic 59–98
[2020-10-02] MEDS: SODIUM CHLORIDE 0.9% 1000ML 1,000 ML IV SCH (05:17)
[2020-10-02] MEDS: INSULIN HUMULIN R 100 UNIT/ML 3ML SQ SCH ×4 (06:16→21:00)
[2020-10-02 06:18] LABS: MEAN CORPUSCULAR HEMOGLOBIN 29.3 pg (27.0-33.0); MEAN CORPUSCULAR HGB CONC 31.9 g/dL (32.0-36.0); MEAN CORPUSCULAR VOLUME 91.7 fL (79-99); NUCLEATED RED BLOOD CELLS 0.2 % (0.0-0.19); RED BLOOD CELL COUNT(AUTO) 3.38 MIL/uL (4.00-5.50); RED CELL DISTRIBUTION WIDTH 13.7 % (11.0-15.5); WHITE BLOOD COUNT (AUTO) 8.4 K/uL (4.8-10.8)
[2020-10-02 06:32] LABS: CREATININE 0.5 mg/dL (0.5-1.5)
[2020-10-02 06:43] LABS: POTASSIUM 2.3 mmol/L (3.5-5.1)
[2020-10-02] MEDS: POTASSIUM CHLORIDE 10% ELIXIR 20 MEQ/15 ML UDCUP PO PRN (07:03)
[2020-10-02] MEDS: POTASSIUM CHLORIDE 20MEQ/100ML 100 ML IV PRN ×2 (07:04→14:26)
[2020-10-02] MEDS: POTASSIUM CHLORIDE 20 MEQ ERTAB PO SCH ×2 (09:00→21:33)
[2020-10-02] MEDS: INSULIN GLARGINE 100 UNITS/ML 10 ML VIAL SQ SCH (09:00)
[2020-10-02] MEDS ORDERED: POTA20TA12 PO (09:15)
[2020-10-02] MEDS ORDERED: MAGOX PO (09:15)
[2020-10-02] MEDS ORDERED: METO25 PO (09:15)
[2020-10-02] MEDS ORDERED: PRED20B PO (09:15)
[2020-10-02] MEDS: ZINC SULFATE 220 CAPSULE PO SCH (09:49)
[2020-10-02] MEDS: APIXABAN 5 MG TABLET PO SCH ×2 (09:49→21:33)
[2020-10-02] MEDS: METRONIDAZOLE 500 MG TABLET PO SCH ×3 (09:49→21:34)
[2020-10-02] MEDS: MAGNESIUM OXIDE 400 MG TABLET PO SCH (09:49)
[2020-10-02] MEDS: ASCORBIC ACID 500 MG TAB PO SCH (09:49)
[2020-10-02] MEDS: METOPROLOL TARTRATE 25 MG TAB PO SCH ×3 (09:49→21:34)
[2020-10-02] MEDS: FLUOXETINE HCL 20 MG CAPSULE PO SCH (09:50)
[2020-10-02] MEDS: PREDNISONE 20 MG TABLET PO SCH (09:50)
[2020-10-02] MEDS: POTASSIUM CHLORIDE 20 MEQ ERTAB PO PRN (09:50)
[2020-10-02] MEDS: PANTOPRAZOLE SODIUM 40 MG TABLET.DR PO SCH (09:50)
[2020-10-02] MEDS: NITROFURANTOIN MONOHYD/M-CRYST 100 MG CAPSULE PO SCH ×2 (09:50→21:34)
[2020-10-02] MEDS: FOLIC ACID 1 MG TABLET PO SCH ×2 (09:50→21:34)
[2020-10-02] MEDS: FLUTICASONE/VILANTEROL 1 EACH BLST.W.DEV IH SCH (09:51)
[2020-10-02] MEDS: NYSTATIN 15 GM POWDER TP SCH ×3 (09:51→21:36)
--- NOTE | 2020-10-02 14:37 | NUR ---
CM NOTE/DC PLAN CHANGED TO [facility] PATIENT CONTINUES TO BE COVID POSITIVE. UNABLE TO MET WITH PATIENT AT [facility] AT BEDSIDE, CALLED ON PHONE. JANNETTE COMPLETED FOR [facility] IN [place], COVID POSITIVE SNF. [facility] CALLED AT [phone] AND CLINICAL PACKET FAXED TO [phone]. CM TO FOLLOW UP FOR APPROVAL. EMS PAPERWORK PENDING DATE OF TRANSFER, WILL FLAG IN CHART FOR NURSE USE. PRIMARY NURSE, ANGELA LOYA, AWARE OF DC PLAN.
--- NOTE | 2020-10-02 19:40 | NUR ---
PM Assessment Received pt awake, lying supine in bed watching TV, NS at 75cc/hr infusing well. Routine assessment done, plan of care discuss, aware pending SNF placement at this time, currently denies discomfort.
[2020-10-02] MEDS: SIMVASTATIN 10 MG TABLET PO SCH (21:34)
[2020-10-03 03:45] VITALS: BP 133/86
[2020-10-03] MEDS: INSULIN HUMULIN R 100 UNIT/ML 3ML SQ SCH ×4 (05:50→20:40)
[2020-10-03] MEDS: SODIUM CHLORIDE 0.9% 1000ML 1,000 ML IV SCH ×2 (05:54→21:17)
[2020-10-03 08:39] VITALS: BP 118/62
--- NOTE | 2020-10-03 09:40 | NUR ---
SPOKE TO DEBO AUGUST REFERRAL TO [facility]. DAUGHTER STATES THE ON LINE REVIEWS OF THE FACILITY ARE TERRIBLE AND SHE DOES NOT WANT HER MOTHER TO GO THERE. ASKED ABOUT OTHER FACILITIES, ADVISED ABOUT [facility], STATES SHE WILL LOOK UP. THIS CM ASKED ABOUT [facility], DAUGHTER STATES NO PATIENT WILL NEVER AGREED- RECENTLY , PATIENT WAS AT [facility], GOT COVID THERE, AND MOM WILL NEVER GO BACK THIS CM ADVISED DTR TO NOTIFY HER WHEN SHE HAS DECIDED. Addendum: 10/03/20 at 1225 by SPENSER JAMIL RN Amended: Links added.
[2020-10-03] MEDS: FLUOXETINE HCL 20 MG CAPSULE PO SCH (09:41)
[2020-10-03] MEDS: MAGNESIUM OXIDE 400 MG TABLET PO SCH (09:41)
[2020-10-03] MEDS: NITROFURANTOIN MONOHYD/M-CRYST 100 MG CAPSULE PO SCH (09:41)
[2020-10-03] MEDS: METRONIDAZOLE 500 MG TABLET PO SCH ×3 (09:41→20:47)
[2020-10-03] MEDS: ZINC SULFATE 220 CAPSULE PO SCH (09:41)
[2020-10-03] MEDS: FOLIC ACID 1 MG TABLET PO SCH ×2 (09:41→20:47)
[2020-10-03] MEDS: POTASSIUM CHLORIDE 20 MEQ ERTAB PO SCH (09:42)
[2020-10-03] MEDS: PREDNISONE 20 MG TABLET PO SCH (09:42)
[2020-10-03] MEDS: ASCORBIC ACID 500 MG TAB PO SCH (09:43)
[2020-10-03] MEDS: APIXABAN 5 MG TABLET PO SCH ×2 (09:43→20:47)
[2020-10-03] MEDS: PANTOPRAZOLE SODIUM 40 MG TABLET.DR PO SCH (09:43)
[2020-10-03] MEDS: POTASSIUM CHLORIDE 20 MEQ ERTAB PO PRN (09:43)
[2020-10-03] MEDS: METOPROLOL TARTRATE 25 MG TAB PO SCH ×3 (09:43→20:47)
[2020-10-03] MEDS: NYSTATIN 15 GM POWDER TP SCH ×3 (09:44→20:49)
[2020-10-03] MEDS: FLUTICASONE/VILANTEROL 1 EACH BLST.W.DEV IH SCH (09:44)
[2020-10-03] MEDS ORDERED: LINA5TAB PO (09:59)
[2020-10-03] MEDS: POTASSIUM CHLORIDE 10 MEQ/TAB.SA PO SCH ×4 (10:00→20:48)
[2020-10-03 12:58] VITALS: BP 137/81
--- NOTE | 2020-10-03 13:01 | NUR ---
RD FOLLOW UP Pt is currently on a Regular diet with a 75 gm modifier and puree consistency. As per LOCKSTITCH BACK MAKER, pt stated not being much of a breakfast eater. LOCKSTITCH BACK MAKER mentioned pt had intention of eating lunch; LOCKSTITCH BACK MAKER will monitor lunch PO intake. Poor PO consumption prior to admission. As per RN, pt eats sweets such as pies, that family brings. RD RECOMMENDATION: When medically feasible, consider appetite stimulant Glucerna TID, adjust flavors to pt's preference Consider speech evaluation, for diet texture advancement recommendations When medically feasible, consider Vitamin D labs and assess need for supplementation LABS: ALB 2.2, TOT PRO 6.5, TOT CA 6.9, K 3.1 Addendum: 10/03/20 at [address] Amended: Links added.
--- NOTE | 2020-10-03 14:40 | NUR ---
RECD CALL FROM DAUGHTER RE REQUEST FOR [facility] OF [facility]. INFOANGELINA VILLATORO, GOT ORDER FOR REFERRAL, SENT PACKET TO CHARU AT [facility], AND WILL AWAIT ACCEPTANCE, EMS TRANSPORT, SHALINI KIRAN
[2020-10-03 16:00] VITALS: BP 124/66
[2020-10-03] MEDS: LOPERAMIDE HCL 2 MG CAP PO PRN (17:02)
--- NOTE | 2020-10-03 19:40 | NUR ---
PM Assessment Received pt awake on moderate high back rest in bed eating some outside food, stated her family brought it in from [employer], [employer] chicken but pt stated just took some bites as she already eat earlier. Routine assessment done, plan of care discuss made aware possible d/c to [facility] in [place], which pt showed excitement about it so as stated she will try her best to get better & do the rehab plan. Pt currently denies discomfort.
[2020-10-03 20:00] VITALS: BP 125/92
[2020-10-03] MEDS: SIMVASTATIN 10 MG TABLET PO SCH (20:48)
[2020-10-04] VITALS: BP 109/59
[2020-10-04 04:00] VITALS: BP 137/90
[2020-10-04 05:15] LABS: HEMATOCRIT 32.5 % (36-48); MEAN CORPUSCULAR HEMOGLOBIN 29.2 pg (27.0-33.0); MEAN CORPUSCULAR HGB CONC 31.7 g/dL (32.0-36.0); MEAN CORPUSCULAR VOLUME 92.1 fL (79-99); RED BLOOD CELL COUNT(AUTO) 3.53 MIL/uL (4.00-5.50); WHITE BLOOD COUNT (AUTO) 9.4 K/uL (4.8-10.8)
[2020-10-04 05:35] LABS: CREATININE 0.5 mg/dL (0.5-1.5); POTASSIUM 3.8 mmol/L (3.5-5.1)
[2020-10-04] MEDS: INSULIN HUMULIN R 100 UNIT/ML 3ML SQ SCH ×3 (06:00→17:26)
[2020-10-04 07:50] VITALS: BP 135/79
[2020-10-04] MEDS ORDERED: LINAGLIPTIN 5 MG TABLET PO SCH (09:00)
[2020-10-04] MEDS: FLUOXETINE HCL 20 MG CAPSULE PO SCH (10:05)
[2020-10-04] MEDS: FOLIC ACID 1 MG TABLET PO SCH (10:05)
[2020-10-04] MEDS: ZINC SULFATE 220 CAPSULE PO SCH (10:05)
[2020-10-04] MEDS: METOPROLOL TARTRATE 25 MG TAB PO SCH ×2 (10:06→16:04)
[2020-10-04] MEDS: MAGNESIUM OXIDE 400 MG TABLET PO SCH (10:06)
[2020-10-04] MEDS: PREDNISONE 20 MG TABLET PO SCH (10:06)
[2020-10-04] MEDS: METRONIDAZOLE 500 MG TABLET PO SCH ×2 (10:06→16:04)
[2020-10-04] MEDS: APIXABAN 5 MG TABLET PO SCH (10:06)
[2020-10-04] MEDS: PANTOPRAZOLE SODIUM 40 MG TABLET.DR PO SCH (10:06)
[2020-10-04] MEDS: ASCORBIC ACID 500 MG TAB PO SCH (10:06)
[2020-10-04] MEDS: POTASSIUM CHLORIDE 10 MEQ/TAB.SA PO SCH ×3 (10:06→17:00)
[2020-10-04] MEDS: NYSTATIN 15 GM POWDER TP SCH ×2 (10:07→14:00)
[2020-10-04] MEDS: FLUTICASONE/VILANTEROL 1 EACH BLST.W.DEV IH SCH (10:07)
[2020-10-04 11:20] VITALS: BP 132/84
--- NOTE | 2020-10-04 16:00 | NUR ---
[facility] CM spoke to Veronika with [facility]. States patient has been accepted. [facility] notified nursing of acceptance. Plan for discharge today.
[2020-10-04 16:20] VITALS: BP 130/82
--- NOTE | 2020-10-04 16:54 | NUR ---
DISCHARGE INSTRUCTIONS GIVEN TO PATIENT AND PATIENTS DAUGHTER OVER THE PHONE. REPORT CALLED TO [facility] REPORT GIVEN TO AMBER JARVIS. MADE AWARE PATIENT IS COVID POSITIVE. MADE AWARE OF NEED TO FOLLOW UP WITH DR. TUCKER. MEDICATIONS REVIEWED. AT THIS TIME PATIENT DENIES ANY SHORTNESS OF BREATH OR CHEST PAIN. NO N/V OR DIARRHEA. O2 SAT 96% ON ROOMAIR. IV AND TELE REMOVED. PENDING EMS TRANSPORT
--- NOTE | 2020-10-04 23:40 | NUR ---
DISCHARGED PER STRETCHER VIA EMS TO [place]. NURSE TO NURSE REPORT DONE BY DAY SHIFT RN. PT FULLY AWAKE AND RESPONSIVE. AGREED AND VERBALIZED UNDERSTANDING WITH THE TRANSFER. IV AND TELE REMOVED. DENIES FEELING OF DISCOMFORT. NO APPARENT DISTRESS NOTED. PERINEAL HYGIENE X 2 BEFORE TAKEN BY EMS.
== END 2020-10-04 23:40 | DRG 643 ==
LOC: EDH 12:07 → EDHIP 16:29 → 4BH 19:51
PROVIDERS: ADMIT Internal Medicine; ATTEND Internal Medicine
DX: E27.2 Addisonian crisis (principal); U07.1 COVID-19; N39.0 Urinary tract infection, site not specified; I48.20 Chronic atrial fibrillation, unspecified; D68.59 Other primary thrombophilia; E44.0 Moderate protein-calorie malnutrition; E11.65 Type 2 diabetes mellitus with hyperglycemia; E86.0 Dehydration; F32.9 Major depressive disorder, single episode, unspecified; G89.4 Chronic pain syndrome; I10 Essential (primary) hypertension; M06.9 Rheumatoid arthritis, unspecified; R13.10 Dysphagia, unspecified; I80.8 Phlebitis and thrombophlebitis of other sites; T38.0X5A Adverse effect of glucocorticoids and synthetic analogues, initial encounter; Z79.01 Long term (current) use of anticoagulants; Z79.4 Long term (current) use of insulin; Z79.51 Long term (current) use of inhaled steroids; E87.6 Hypokalemia; Z79.52 Long term (current) use of systemic steroids; Z82.0 Family history of epilepsy and other diseases of the nervous system; Z82.3 Family history of stroke; Z82.49 Family history of ischemic heart disease and other diseases of the circulatory system; Z82.5 Family history of asthma and other chronic lower respiratory diseases; Z83.3 Family history of diabetes mellitus; Z79.899 Other long term (current) drug therapy; Y92.89 Other specified places as the place of occurrence of the external cause; Z68.23 Body mass index [BMI] 23.0-23.9, adult
CPT/HCPCS: 36415; 71045; 74230; 80048; 80053; 81001; 82550; 82948; 83605; 83735; 83874; 84132; 84145; 84484; 85025; 85027; 85610; 85730; 87088; 87324; 87426; 92611; 93005; 97039; G0378; J1815; J2543; J2930; J3475; J3480; J3490; J7030; U0003